=== PATIENT | female | born 1985 | race Hispanic/Latino ===

== ENCOUNTER 2019-05-17 12:17 | Emergency (ER) | payer BC, OTHER ==
--- OUTSIDE RECORDS SUMMARY | 2019-05-17 12:20 | XMS REPORT ---
:1985 [facility] [address] [place] [address] Dr. Grant [address] [place] [id number] Care Team Providers Name Role Phone Unavailable Unavailable Unavailable Problems This patient has no known problems. Allergies, Adverse Reactions, Alerts This patient has no known allergies or adverse reactions. Medications This patient has no known medications.
--- NOTE | 2019-05-17 13:58 | RAD REPORT ---
EXAM DESCRIPTION: RAD - Abdomen 1 View (KUB) - 05/17/2019 1:51 pm CLINICAL HISTORY: diarrhea/constipation Pain COMPARISON: No comparisons FINDINGS: The bowel gas pattern is non-obstructive. No evidence of free air or pneumatosis. No suspi cious calcifications. No significant bony findings. Cholecystectomy clips. Postsurgical changes about the stomach. IMPRESSION: Negative examination.
--- NOTE | 2019-05-17 14:07 | EDPHYS ---
Physician Documentation [facility] Name: Gabrielle Carver Age: 33 yrs Sex: Female : 1985 Arrival Date: 05/17/2019 Time: 12:20 Bed 19 Private MD: Conrad Villatoro E ED Physician Aren Ayon HPI: 05/17 14:07 This 33 yrs old Female presents to ER via Ambulatory with complaints of kb Constipation, Diarrhea, Abdominal Pain. 14:07 The patient presents to the emergency department with diarrhea. Onset: The kb symptoms/episode began/occurred 9 day(s) ago. Possible causes: daughter had same symptoms, also got a new dog that was diagnosed with round worm. The symptoms are aggravated by nothing. The symptoms are alleviated by nothing. Associated signs and symptoms: Pertinent positives: constipation, diarrhea. Severity of symptoms: At their worst the symptoms were moderate in the emergency department the symptoms are unchanged. The patient has not experienced similar symptoms in the past. The patient has not recently seen a physician. Pt reports she has a new dog that was diagnosed with round worm. States she started having alternating constipation and diarrhea around the same time so she is concerned that she has a parasite. States she does have a history of IBS. Denies fever, abd pain, n/v.. 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 - Coronavirus screen:: The patient has NOT traveled to [place] in the past 14 days. The patient has NOT had contact with known/suspected case of Coronavirus?. - Social history:: Smoking status: Patient denies any tobacco usage or history of. - Ebola Screening: : Patient negative for fever greater than or equal to 101.5 degrees Fahrenheit, and additional compatible Ebola Virus Disease symptoms Patient denies exposure to infectious person Patient denies travel to an Ebola-affected area in the 21 days before illness onset No symptoms or risks identified at this time. ROS: 14:07 Constitutional: Negative for fever, chills, and weight loss, Cardiovascular: Negative kb for chest pain, palpitations, and edema, Respiratory: Negative for shortness of breath, cough, wheezing, and pleuritic chest pain, Back: Negative for injury and pain, : Negative for injury, bleeding, discharge, and swelling, MS/Extremity: Negative for injury and deformity, Skin: Negative for injury, rash, and discoloration, Neuro: Negative for headache, weakness, numbness, tingling, and seizure. 14:07 Abdomen/GI: Positive for diarrhea, constipation. Exam: 14:07 Constitutional: This is a well developed, well nourished patient who is awake, alert, kb and in no acute distress. Head/Face: Normocephalic, atraumatic. ENT: Nares patent. No nasal discharge, no septal abnormalities noted. Tympanic membranes are normal and external auditory canals are clear. Oropharynx with no redness, swelling, or masses, exudates, or evidence of obstruction, uvula midline. Mucous membranes moist. Neck: Trachea midline, no thyromegaly or masses palpated, and no cervical lymphadenopathy. Supple, full range of motion without nuchal rigidity, or vertebral point tenderness. No Meningismus. Chest/axilla: Normal chest wall appearance and motion. Nontender with no deformity. No lesions are appreciated. Cardiovascular: Regular rate and rhythm with a normal S1 and S2. No gallops, murmurs, or rubs. Normal PMI, no JVD. No pulse deficits. Respiratory: Lungs have equal breath sounds bilaterally, clear to auscultation and percussion. No rales, rhonchi or wheezes noted. No increased work of breathing, no retractions or nasal flaring. Abdomen/GI: Soft, non-tender, with normal bowel sounds. No distension or tympany. No guarding or rebound. No evidence of tenderness throughout. Skin: Warm, dry with normal turgor. Normal color with no rashes, no lesions, and no evidence of cellulitis. MS/ Extremity: Pulses equal, no cyanosis. Neurovascular intact. Full, normal range of motion. Neuro: Awake and alert, GCS 15, oriented to person, place, time, and situation. Cranial nerves II-XII grossly intact. Motor strength 5/5 in all extremities. Sensory grossly intact. Cerebellar exam normal. Normal gait. Vital Signs: 12:56 BP 115 / 74; Pulse 72; Resp 16 S; Temp 98.3(O); Pulse Ox 100% on R/A; Weight 60.78 kg ca1 (R); Height 5 ft. 1 in. (154.94 cm) (R); Pain 0/10; 13:58 BP 113 / 68; Pulse 75; Resp 16; Pulse Ox 100% on R/A; rb1 14:46 BP 108 / 72; Pulse 93; Resp 17; Pulse Ox 98% on R/A; rb1 12:56 Body Mass Index 25.32 (60.78 kg, 154.94 cm) ca1 MDM: 12:59 Patient medically screened. kb 14:04 Data reviewed: vital signs, nurses notes. Data interpreted: Pulse oximetry: on room air kb is 100 %. Interpretation: normal. Counseling: I had a detailed discussion with the patient and/or guardian regarding: the historical points, exam findings, and any diagnostic results supporting the discharge/admit diagnosis, radiology results, the need for outpatient follow up, a family practitioner, to return to the emergency department if symptoms worsen or persist or if there are any questions or concerns that arise at home. 05/17 13:09 Order name: Ova And Parasites kb 05/17 13:10 Order name: Ova and Parasites EDMS 05/17 13:09 Order name: Abdomen 1 View (KUB) XRAY kb Administered Medications: No medications were administered Disposition: 14:50 Co-signature as Attending Physician, Aren Ayon MD. rn Disposition: 05/17/19 14:05 Discharged to Home. Impression: Diarrhea, unspecified. - Condition is Stable. - Discharge Instructions: Food Choices to Help Relieve Diarrhea, Adult, Irritable Bowel Syndrome, Adult, Diarrhea, Adult, [id number]. - Medication Reconciliation Form, Thank You Letter, Antibiotic Education, Prescription Opioid Use form. - Follow up: Emergency Department; When: As needed; Reason: Worsening of condition. Follow up: Private Physician; When: 2 - 3 days; Reason: Recheck today's complaints, Continuance of care, Re-evaluation by your physician. Signatures: Dispatcher [employer] EDCO Kathleen Huynh, INK MAKERTiagoC Aren Mosher MD MD rn Barber, Rebecca, RN RN rb1 AcobKiki RN RN ca1 Corrections: (The following items were deleted from the chart) 14:47 14:05 05/17/2019 14:05 Discharged to Home. Impression: Diarrhea, unspecified. Condition rb1 is Stable. Forms are Medication Reconciliation Form, Thank You Letter, Antibiotic Education, Prescription Opioid Use. Follow up: Emergency Department; When: As needed; Reason: Worsening of condition. Follow up: Private Physician; When: 2 - 3 days; Reason: Recheck today's complaints, Continuance of care, Re-evaluation by your physician. kb
--- NOTE | 2019-05-17 14:07 | ER ---
Nurse's Notes [facility] Name: Gabrielle Carver Age: 33 yrs Sex: Female : 1985 Arrival Date: 05/17/2019 Time: 12:20 Bed 19 Private MD: Conrad Villatoro E Diagnosis: Diarrhea, unspecified Presentation: 05/17 12:54 Presenting complaint: Patient states: Diarrhea and constipation alternately x 9 days. ca1 Around the same time, we picked up a puppy and it has worms, I am afraid I got the same. Transition of care: patient was not received from another setting of care. Onset of symptoms was May 17, 2019. Risk Assessment: Do you want to hurt yourself or someone else? Patient reports no desire to harm self or others. Initial Sepsis Screen: Does the patient meet any 2 criteria? No. Patient's initial sepsis screen is negative. Does the patient have a suspected source of infection? No. Patient's initial sepsis screen is negative. Care prior to arrival: None. 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 - Coronavirus screen:: The patient has NOT traveled to [place] in the past 14 days. The patient has NOT had contact with known/suspected case of Coronavirus?. - Social history:: Smoking status: Patient denies any tobacco usage or history of. - Ebola Screening: : Patient negative for fever greater than or equal to 101.5 degrees Fahrenheit, and additional compatible Ebola Virus Disease symptoms Patient denies exposure to infectious person Patient denies travel to an Ebola-affected area in the 21 days before illness onset No symptoms or risks identified at this time. Screenin:03 Abuse screen: Denies threats or abuse. Nutritional screening: No deficits noted. rb1 Tuberculosis screening: No symptoms or risk factors identified. Fall Risk None identified. Assessment: 13:03 General: Appears in no apparent distress. comfortable, Behavior is calm, cooperative, rb1 Denies fever. Pain: Complains of pain in abdomen Pain currently is 5 out of 10 on a pain scale. Pain began x 9 days. Neuro: Level of Consciousness is awake, alert, obeys commands, Oriented to person, place, time, situation. Cardiovascular: Capillary refill < 3 seconds is brisk in bilateral fingers. Respiratory: Airway is patent Respiratory effort is even, unlabored, Respiratory pattern is regular, symmetrical. GI: Bowel sounds present X 4 quads. Abd is soft Reports constipation, diarrhea, has history of IBS. : No signs and/or symptoms were reported regarding the genitourinary system. Derm: Skin is pink, warm \T\ dry. 14:00 Reassessment: Patient appears in no apparent distress at this time. No changes from rb1 previously documented assessment. Pt. is unable to provide a stool sample at this tme. 14:43 Reassessment: Patient appears in no apparent distress at this time. Patient and/or rb1 family updated on plan of care and expected duration. Pain level reassessed. Patient is alert, oriented x 3, equal unlabored respirations, skin warm/dry/pink. Sent materials home with the pt. to collect a stool sample and bring it back to the hospital. Patient states symptoms have improved. Vital Signs: 12:56 BP 115 / 74; Pulse 72; Resp 16 S; Temp 98.3(O); Pulse Ox 100% on R/A; Weight 60.78 kg ca1 (R); Height 5 ft. 1 in. (154.94 cm) (R); Pain 0/10; 13:58 BP 113 / 68; Pulse 75; Resp 16; Pulse Ox 100% on R/A; rb1 14:46 BP 108 / 72; Pulse 93; Resp 17; Pulse Ox 98% on R/A; rb1 12:56 Body Mass Index 25.32 (60.78 kg, 154.94 cm) ca1 ED Course: 12:20 Patient arrived in ED. ag5 12:21 Conrad Villatoro MD is Private Physician. ag5 12:56 Triage completed. ca1 12:56 Arm band placed on right wrist. ca1 12:59 Kathleen Huynh FNP-C is [facility]. kb 12:59 Aren Ayon MD is Attending Physician. kb 13:03 Jayashree Faye, CHICHO is Primary Nurse. rb1 13:03 Patient has correct armband on for positive identification. Bed in low position. Call rb1 light in reach. Side rails up X 1. Pulse ox on. NIBP on. Warm blanket given. 14:46 No provider procedures requiring assistance completed. Patient did not have IV access rb1 during this emergency room visit. Administered Medications: No medications were administered Outcome: 14:05 Discharge ordered by . christopher 14:46 Discharged to home ambulatory. rb1 14:46 Condition: stable 14:46 Discharge instructions given to patient, Instructed on discharge instructions, follow up and referral plans. Demonstrated understanding of instructions, follow-up care, Prescriptions given X none 14:47 Patient left the ED. rb1 Signatures: Kathleen Huynh, JULIUS-C DENTAL OFFICE RECEPTIONIST-Jayashree Mathews, RN RN rb1 Kiki Kim RN RN ca1 Taryn Brooks ag5 Corrections: (The following items were deleted from the chart) 15:23 14:43 Reassessment: Patient appears in no apparent distress at this time. Patient rb1 and/or family updated on plan of care and expected duration. Pain level reassessed. Patient is alert, oriented x 3, equal unlabored respirations, skin warm/dry/pink. Patient states symptoms have improved. rb1
== END 2019-05-17 14:47 | disposition home or self-care (01) ==
LOC: ER 12:17
DX: R19.7 Diarrhea, unspecified (principal); Z88.8 Allergy status to other drugs, medicaments and biological substances
CPT/HCPCS: 74018; 87177; 87209; 99283